=== PATIENT | female | born 1975 | race Caucasian/White ===

== ENCOUNTER 2020-11-13 12:27 | Day surgery (SDC) | payer OTHER ==
[~2020-11-13] VITALS: Ht 162.6 cm; Wt 49.8 kg
[2020-11-13] MEDS ORDERED: CEFAZOLIN PMX 1GM/50ML 50 ML IV ONE (13:00)
[2020-11-13] MEDS ORDERED: SODIUM CHLORIDE 0.9% 1,000 ML IV SCH (13:00)
[2020-11-13 13:29] VITALS: BP 132/84
[2020-11-13] MEDS ORDERED: NALOXONE 1 MG/ML, 2ML ONE (13:37)
[2020-11-13] MEDS ORDERED: FLUMAZENIL 0.1 MG/1 ML, 5ML ONE (13:37)
[2020-11-13] MEDS ORDERED: MIDAZOLAM 1 MG/ML, 5ML ONE ×2 (13:37)
[2020-11-13] MEDS ORDERED: FENTANYL PF 100 MCG/2ML ONE ×2 (13:37→14:33)
[2020-11-13] MEDS ORDERED: AMIT50TA PO (13:39)
[2020-11-13] MEDS ORDERED: OXYC15TA60 PO (13:39)
[2020-11-13] MEDS ORDERED: OXYC-501 PO (13:39)
[2020-11-13] MEDS ORDERED: MORPHINE PO (13:41)
[2020-11-13] MEDS ORDERED: LIDOCAINE 1%, 10ML ONE (13:42)
[2020-11-13] MEDS ORDERED: LIDOCAINE 1%, 20ML ONE (13:42)
[2020-11-13] MEDS ORDERED: DIPHENHYDRAMINE 50 MG/ML, 1ML ONE (14:34)
== END 2020-11-13 16:20 | disposition home or self-care (01) ==
LOC: OUT 12:27
PROVIDERS: ATTEND Internal Medicine Hematology & Oncology
DX: C49.9 Malignant neoplasm of connective and soft tissue, unspecified (principal); D70.1 Agranulocytosis secondary to cancer chemotherapy; Z79.891 Long term (current) use of opiate analgesic; Z79.899 Other long term (current) drug therapy; Z88.8 Allergy status to other drugs, medicaments and biological substances
CPT/HCPCS: 36561; 76937; 77001; 99156; 99157; C1894; J0690; J1200; J1642; J2250; J3010; J7030; J2310